=== PATIENT | female | born 1965 | race Caucasian/White ===

== ENCOUNTER 2016-09-05 11:06 | Emergency (ER) | payer SELFPAY ==
[~2016-09-05] VITALS: Ht 165.1 cm; Wt 81.7 kg
[2016-09-05] MEDS ORDERED: LISINOPRIL 20 MG TABLET ONE (11:56)
[2016-09-05] MEDS ORDERED: METOPROLOL TARTRATE 50 MG TABLET ONE (11:56)
[2016-09-05] MEDS ORDERED: ASPIRIN 81 MG TABLET CHEW ONE (11:56)
[2016-09-05] MEDS ORDERED: PLEASE ENTER ALLERGIES MC SCH ×2 (12:00)
[2016-09-05] MEDS ORDERED: ASPIRIN 81 MG TABLET CHEW PO ONE (12:00)
[2016-09-05] MEDS ORDERED: LISINOPRIL 20 MG TABLET PO ONE (12:00)
[2016-09-05] MEDS ORDERED: HYDROCHLOROTHIAZIDE 25 MG TABLET PO ONE (12:00)
[2016-09-05] MEDS ORDERED: METOPROLOL TARTRATE 100 MG TABLET PO ONE (12:00)
[2016-09-05 12:10] LABS: BLOOD UREA NITROGEN 10 mg/dL (7-18)
[2016-09-05 12:17] LABS: IS PT STATUS REG ER OR PRE ER? YES
[2016-09-05 13:04] VITALS: BP 178/106
== END 2016-09-05 14:31 | disposition home or self-care (01) ==
LOC: ED 12:48
DX: K08.89 Other specified disorders of teeth and supporting structures (principal); E11.65 Type 2 diabetes mellitus with hyperglycemia; I10 Essential (primary) hypertension
CPT/HCPCS: 36415; 71010; 80048; 82040; 83880; 84484; 85025; 93005

== ENCOUNTER 2016-09-28 07:31 | Emergency (ER) | payer MEDICAID ==
[~2016-09-28] VITALS: Ht 165.1 cm; Wt 80.0 kg
[~2016-09-28 07:31] MED LIST: LISI1TAB7 PO; METO-99 PO
[2016-09-28 07:35] VITALS: BP 148/80
[2016-09-28] MEDS ORDERED: IBUPROFEN 200 MG TABLET PO ONE (08:00)
[2016-09-28] MEDS ORDERED: IBUPROFEN 200 MG TABLET ONE (08:03)
[2016-09-28 08:22] LABS: BLOOD UREA NITROGEN 11 mg/dL (7-18)
== END 2016-09-28 09:41 | disposition home or self-care (01) ==
LOC: ED 09:35
DX: S40.012A Contusion of left shoulder, initial encounter (principal); S00.03XA Contusion of scalp, initial encounter; R55 Syncope and collapse; E11.9 Type 2 diabetes mellitus without complications; I10 Essential (primary) hypertension; W19.XXXA Unspecified fall, initial encounter; Y93.89 Activity, other specified; Y99.8 Other external cause status; Y92.009 Unspecified place in unspecified non-institutional (private) residence as the place of occurrence of the external cause
CPT/HCPCS: 36415; 80048; 82040; 84703; 85025; 93005; 99285